=== PATIENT | male | born 1995 | race American Indian/Alaskan Native ===

== ENCOUNTER 2021-05-07 11:40 | Emergency (ER) | payer SELFPAY ==
--- NOTE | 2021-05-07 14:14 | EDM.PDOC ---
ED HPI GENERAL MEDICAL PROBLEM - General Chief Complaint: Skin Complaint Stated Complaint: FRSOTBITE ON BOTH FEET Time Seen by Provider: 05/07/21 13:50 Source of Information: Reports: Patient, Family History Limitations: Reports: No Limitations - History of Present Illness INITIAL COMMENTS - FREE TEXT/NARRATIVE: 25 yo male was discharged from [facility] a couple days ago after an admission for methamphetamine overdose and bilateral frostbite of the feet. He is now staying locally with his sister in our area and doesn't know what to do with his feet. He has an appt at [facility] here in [place] for . Onset: Unknown/Unsure Duration: Day(s):, Constant Location: Reports: Lower Extremity, Left, Lower Extremity, Right Quality: Reports: Stabbing Severity: Moderate Improves with: Reports: Other (keeping weight off his feet) Worsens with: Reports: Other (trying to support his weight on his feet) Context: Reports: Other (See HPI) Associated Symptoms: Reports: Other (some swelling in both feet) Treatments GIS MANAGER: Reports: NSAIDS Bilateral Feet Pain Score (Numeric/FACES): 5 - Related Data Allergies Allergy/AdvReac Type Severity Reaction Status Date / Time No Known Allergies Allergy Verified 05/07/21 13:45 Home Meds: Home Meds NK [No Known Home Meds] 12/15/13 [History] Social & Family History - Tobacco Use Tobacco Use Status *Q: Light Tobacco User Years of Tobacco use: 10 Packs/Tins Daily: 0.3 - Recreational Drug Use Recreational Drug Use: Yes Recreational Drug Type: Reports: Marijuana/Hashish, Methamphetamine ED ROS GENERAL - Review of Systems Review Of Systems: See Below Constitutional: Reports: No Symptoms Skin: Reports: Wound (redness with mostly intact water blisters on mostly the soles of both feet. ) Neurological: Reports: No Symptoms ED EXAM, SKIN/RASH Exam: See Below Exam Limited By: No Limitations General Appearance: Alert, WD/WN, No Apparent Distress, Obese Extremities: Pedal Edema, Other (redness and swelling of both feet) Neurological: Alert, Oriented, CN II-XII Intact, Normal Cognition, No Motor/Sensory Deficits Psychiatric: Normal Affect, Normal Mood Skin: Warm, Dry, Other (multiple large water blisters on the soles of both feet. Some generalized redness noted to the rest of the foot. Only one blister is not intact. ) Characteristics: Bullous Associated features: Tenderness. No: Warmth, Lymphangitis Course - Vital Signs Last Recorded V/S: Last Vital Signs Temp 36.2 C 05/07/21 13:44 Pulse 87 05/07/21 13:44 Resp 16 05/07/21 13:44 BP 137/91 H 05/07/21 13:44 Pulse Ox 95 05/07/21 13:44 Departure - Departure Time of Disposition: 14:20 Disposition: Home, Self-Care 01 Condition: Fair Clinical Impression: Frostbite of feet, bilateral Qualifiers: Encounter type: subsequent encounter Qualified Code(s): T33.821D - Superficial frostbite of right foot, subsequent encounter; T33.822D - Superficial frostbite of left foot, subsequent encounter - Discharge Information *PRESCRIPTION DRUG MONITORING PROGRAM REVIEWED*: Not Applicable *COPY OF PRESCRIPTION DRUG MONITORING REPORT IN PATIENT AMADOU: Not Applicable Referrals: Logan Toscano MD [Primary Care Provider] - Additional Instructions: Aleve 2 every 8 hrs with food for pain relief. Add acetaminophen up to 1000 mg every 6 hrs for further pain relief. Elevate feet to reduce swelling. Keep open blisters clean with soap and water 2-3 times per day. Use a walker to take weight off your feet. Follow up at [facility] on . Sepsis Event Note (ED) - Focused Exam Vital Signs: Vital Signs Temp Pulse Resp BP Pulse Ox 05/07/21 13:44 36.2 C 87 16 137/91 H 95 05/07/21 13:20 36.2 C 87 16 137/91 H 95
== END 2021-05-07 15:22 | disposition home or self-care (01) ==
LOC: JP.ED 11:40
DX: T33.821A Superficial frostbite of right foot, initial encounter (principal); T33.822A Superficial frostbite of left foot, initial encounter; Z72.0 Tobacco use
CPT/HCPCS: 99283

== ENCOUNTER 2021-07-24 01:57 | Emergency (ER) | payer MEDICAID ==
[2021-07-24] MEDS ORDERED: Ondansetron 4 MG/2 ML SDV IVPUSH ONE (02:13)
[2021-07-24] MEDS ORDERED: Activated Charcoal/Water Susp 25 GM/120 ML Tube PO ONE (02:13)
[2021-07-24 02:28] LABS: ACETAMINOPHEN 29.4 ug/mL (10.0-30.0)
[2021-07-24 02:44] LABS: CORONAVIRUS COVID-19 NAA NEGATIVE (NEGATIVE)
== END 2021-07-24 11:50 ==
LOC: JP.ED 01:57
DX: T43.222A Poisoning by selective serotonin reuptake inhibitors, intentional self-harm, initial encounter (principal); F33.2 Major depressive disorder, recurrent severe without psychotic features; Z79.899 Other long term (current) drug therapy; Z20.822 Contact with and (suspected) exposure to COVID-19
CPT/HCPCS: 0241U; 36415; 36600; 80053; 80143; 80175; 80179; 80201; 80305-QW; 80307; 81001; 82803; 83690; 85025; 93005; 93010; 96374; 99283; 99285-25; J2405